=== PATIENT | male | born 1935 | race Caucasian/White ===

== ENCOUNTER 2021-08-23 11:12 | Inpatient (IN) | payer MEDICARE ==
[~2021-08-23] VITALS: Ht 180.3 cm; Wt 83.9 kg
[2021-08-23 11:38] LABS: BASOPHILS % 0.1 % (0.0-1.0); EOSINOPHILS # (AUTO) 0.1 (0.0-0.4); EOSINOPHILS % 1.4 % (0.0-6.0); HEMATOCRIT 43.3 % (38.2-49.6); HEMOGLOBIN 14.1 g/dL (14.0-18.0); LYMPHOCYTES # (AUTO) 1.5 (1.0-3.2); LYMPHOCYTES % 16.7 % (18.0-39.1); MEAN CORPUSCULAR HEMOGLOBIN 31.9 pg (28-32); MEAN CORPUSCULAR HGB CONC 32.6 g/dL (31-35); MONOCYTES # (AUTO) 0.6 (0.2-0.8); MONOCYTES % 6.7 % (4.4-11.3); NEUTROPHILS # (AUTO) 6.8 (2.1-6.9); NEUTROPHILS % 74.2 % (38.7-80.0); PLATELET COUNT 315 x10e3/uL (140-360); RED BLOOD COUNT 4.42 x10e6/uL (4.3-5.7); RED CELL DISTRIBUTION WIDTH 13.3 % (11.7-14.4)
[2021-08-23 11:52] LABS: PROTHROMBIN TIME 14.1 seconds (11.9-14.5)
[2021-08-23 11:53] LABS: PARTIAL THROMBOPLASTIN TIME 28.6 seconds (23.8-35.5)
[2021-08-23 11:59] LABS: ALBUMIN 3.3 g/dL (3.5-5.0); ALBUMIN/GLOBULIN RATIO 0.7 (0.8-2.0); ANION GAP 18.9 mmol/L (8-16); CALCIUM 9.2 mg/dL (8.4-10.2); POTASSIUM 4.9 mmol/L (3.5-5.1)
[2021-08-23 12:05] LABS: CREATINE KINASE MB 2.2 ng/mL (0-5.0)
[2021-08-23 12:22] LABS: CLARITY,URINE CLEAR (CLEAR); COLOR,URINE YELLOW (YELLOW); LEUKOCYTE ESTERASE ,URINE NEGATIVE (NEGATIVE); NITRITE,URINE NEGATIVE (NEGATIVE)
[2021-08-23 12:23] LABS: KETONES,URINE NEGATIVE (NEGATIVE); PROTEIN,URINE DIPSTICK NEGATIVE (NEGATIVE); URINE UROBILINOGEN 0.2 mg/dL (0.2 - 1)
[2021-08-23 12:33] LABS: WBC,URINE (MAN) 0-5 /HPF (0-5)
[2021-08-23 12:34] LABS: BACTERIA,URINE MODERATE /HPF; EPITHELIAL CELLS,URINE FEW /LPF; TRANSITIONAL EPI CELLS,URINE RARE
[2021-08-23] MEDS ORDERED: Morphine 2mg Syringe 2 MG/ML SYR IV PRN (13:15)
[2021-08-23] MEDS ORDERED: ONDANSETRON HCL INJ 2MG/ML 2ML 2 MG/ML VIAL IV PRN (13:15)
[2021-08-23] MEDS ORDERED: INSULIN REGULAR, HUMAN 100 UNIT/1 ML SQ ONE (13:30)
[2021-08-23 14:05] VITALS: BP 149/82
[2021-08-23 14:17] VITALS: BP 149/82
[2021-08-23 14:29] VITALS: BP 149/82
[2021-08-23] MEDS ORDERED: OXYBUTYNIN CHLOR5 MG PO (14:29)
[2021-08-23] MEDS ORDERED: BENAZEPRIL HCL40 MG PO (14:29)
[2021-08-23] MEDS ORDERED: LEVOTHYROXINE100 MCG PO (14:29)
[2021-08-23] MEDS ORDERED: ZEBETA10 MG PO (14:29)
[2021-08-23] MEDS ORDERED: FUROSEMIDE40 MG PO (14:29)
[2021-08-23] MEDS ORDERED: METFORMIN HCL1000 MG PO (14:29)
[2021-08-23] MEDS ORDERED: GLIPIZIDE10 MG PO (14:29)
[2021-08-23] MEDS ORDERED: NIFEDIPINE ER30 M1 PO (14:29)
[2021-08-23] MEDS ORDERED: FENOFIBRATE145 M1 PO (14:29)
[2021-08-23] MEDS ORDERED: METOPROLOL TARTRATE INJ 1 MG/ML VIAL IV PRN (14:30)
[2021-08-23] MEDS ORDERED: ACETAMINOPHEN 325 MG TAB PO PRN (14:30)
[2021-08-23] MEDS ORDERED: POLYETHYLENE GLYCOL 3350 17 GM PACK PO PRN (14:30)
[2021-08-23] MEDS ORDERED: SODIUM CHLORIDE 0.9% 1000ML 1,000 ML IV SCH (15:15)
[2021-08-23 16:00] VITALS: BP 140/71
[2021-08-23] MEDS ORDERED: DEXTROSE 50% SYRINGE 50 ML IV PRN (16:00)
[2021-08-23] MEDS ORDERED: FAMOTIDINE 20 MG TAB PO SCH (16:30)
[2021-08-23] MEDS ORDERED: DOCUSATE SODIUM 100 MG CAP PO SCH (17:00)
[2021-08-23] MEDS ORDERED: ASPIRIN 325 MG TAB PO ONE (17:00)
[2021-08-23] MEDS: FAMOTIDINE 20 MG TAB PO SCH (17:47)
[2021-08-23] MEDS: OXYBUTYNIN CHLORIDE 5 MG TAB PO SCH (17:47)
[2021-08-23] MEDS: DOCUSATE SODIUM 100 MG CAP PO SCH ×2 (17:47→21:48)
[2021-08-23] MEDS: INSULIN REGULAR, HUMAN 100 UNIT/1 ML SQ SCH ×2 (17:58→21:48)
[2021-08-23 19:07] LABS: CREATINE KINASE MB 1.6 ng/mL (0-5.0)
[2021-08-23 20:00] VITALS: BP 163/90
[2021-08-24] VITALS: BP 132/60
[2021-08-24 04:00] VITALS: BP 159/72
[2021-08-24] MEDS: LEVOTHYROXINE SODIUM 100 MCG TAB PO SCH (05:42)
[2021-08-24 06:03] LABS: BASOPHILS % 0.3 % (0.0-1.0); EOSINOPHILS # (AUTO) 0.2 (0.0-0.4); EOSINOPHILS % 2.3 % (0.0-6.0); HEMOGLOBIN 12.5 g/dL (14.0-18.0); LYMPHOCYTES # (AUTO) 2.2 (1.0-3.2); LYMPHOCYTES % 24.4 % (18.0-39.1); MEAN CORPUSCULAR HEMOGLOBIN 31.4 pg (28-32); MEAN CORPUSCULAR HGB CONC 32.1 g/dL (31-35); MONOCYTES # (AUTO) 0.6 (0.2-0.8); MONOCYTES % 6.5 % (4.4-11.3); NEUTROPHILS # (AUTO) 5.8 (2.1-6.9); NEUTROPHILS % 65.6 % (38.7-80.0); PLATELET COUNT 268 x10e3/uL (140-360); RED BLOOD COUNT 3.98 x10e6/uL (4.3-5.7); RED CELL DISTRIBUTION WIDTH 13.2 % (11.7-14.4)
[2021-08-24 06:31] LABS: ALBUMIN 2.7 g/dL (3.5-5.0); ALBUMIN/GLOBULIN RATIO 0.7 (0.8-2.0); ANION GAP 15.6 mmol/L (8-16); CALCIUM 8.4 mg/dL (8.4-10.2); CHOL/HDL RATIO 6.4 (3.9-4.7); CREATININE, SERUM 1.57 mg/dL (0.72-1.25); MAGNESIUM 1.9 MG/DL (1.3-2.1); PHOSPHORUS 4.6 MG/DL (2.3-4.7); POTASSIUM 4.6 mmol/L (3.5-5.1)
[2021-08-24 06:55] LABS: THYROID STIMULATING HORMONE 3.991 uIU/mL (0.350-4.940)
[2021-08-24] MEDS: INSULIN REGULAR, HUMAN 100 UNIT/1 ML SQ SCH ×4 (07:30→21:12)
[2021-08-24 08:00] VITALS: BP 159/72
[2021-08-24 08:28] VITALS: BP 176/99
[2021-08-24] MEDS ORDERED: FENOFIBRATE 145 MG TAB PO SCH (09:00)
[2021-08-24] MEDS ORDERED: FUROSEMIDE 40 MG TAB PO SCH (09:00)
[2021-08-24] MEDS ORDERED: BISOPROLOL FUMARATE 10 MG TAB PO SCH (09:00)
[2021-08-24] MEDS: FAMOTIDINE 20 MG TAB PO SCH (09:08)
[2021-08-24] MEDS: ASPIRIN 81 MG ENTERIC COATED PO SCH (09:09)
[2021-08-24] MEDS: DOCUSATE SODIUM 100 MG CAP PO SCH ×3 (09:09→21:03)
[2021-08-24] MEDS: OXYBUTYNIN CHLORIDE 5 MG TAB PO SCH ×2 (09:11→16:54)
[2021-08-24] MEDS: NIFEDIPINE CR 30 MG TAB PO SCH (09:11)
[2021-08-24 12:08] VITALS: BP 184/99
[2021-08-24] MEDS: BISOPROLOL FUMARATE 10 MG TAB PO SCH (12:15)
[2021-08-24] MEDS ORDERED: CLOPIDOGREL BISULFATE 75 MG TAB PO NR (13:30)
[2021-08-24] MEDS ORDERED: HYDRALAZINE HCL 20 MG/ML VIAL IV PRN (13:30)
[2021-08-24] MEDS: CLONIDINE HCL 0.1 MG TAB PO SCH (16:54)
[2021-08-24 17:55] LABS: PHOSPHORUS 4.4 MG/DL (2.3-4.7)
[2021-08-24 20:00] VITALS: BP 145/81
[2021-08-25] VITALS (8 sets, daily range): BP systolic 121–165; BP diastolic 62–91
[2021-08-25] MEDS: LEVOTHYROXINE SODIUM 100 MCG TAB PO SCH (05:30)
[2021-08-25 06:09] LABS: BASOPHILS % 0.3 % (0.0-1.0); EOSINOPHILS # (AUTO) 0.2 (0.0-0.4); EOSINOPHILS % 2.7 % (0.0-6.0); HEMATOCRIT 39.1 % (38.2-49.6); HEMOGLOBIN 12.6 g/dL (14.0-18.0); LYMPHOCYTES # (AUTO) 2.1 (1.0-3.2); LYMPHOCYTES % 24.5 % (18.0-39.1); MEAN CORPUSCULAR HEMOGLOBIN 31.4 pg (28-32); MEAN CORPUSCULAR HGB CONC 32.2 g/dL (31-35); MEAN CORPUSCULAR VOLUME 97.5 fL (81-99); MONOCYTES # (AUTO) 0.6 (0.2-0.8); MONOCYTES % 7.3 % (4.4-11.3); NEUTROPHILS # (AUTO) 5.6 (2.1-6.9); NEUTROPHILS % 64.2 % (38.7-80.0); PLATELET COUNT 285 x10e3/uL (140-360); RED BLOOD COUNT 4.01 x10e6/uL (4.3-5.7); RED CELL DISTRIBUTION WIDTH 13.1 % (11.7-14.4)
[2021-08-25 06:54] LABS: TOTAL PROTEIN, URINE < 6.8 mg/dL (1-14)
[2021-08-25 06:56] LABS: ALBUMIN 2.9 g/dL (3.5-5.0); ALBUMIN/GLOBULIN RATIO 0.9 (0.8-2.0); ANION GAP 13.3 mmol/L (8-16); CALCIUM 8.8 mg/dL (8.4-10.2); CREATININE, SERUM 1.72 mg/dL (0.72-1.25); POTASSIUM 4.3 mmol/L (3.5-5.1)
[2021-08-25 07:00] LABS: BACTERIA,URINE FEW /HPF; CLARITY,URINE CLEAR (CLEAR); COLOR,URINE YELLOW (YELLOW); EPITHELIAL CELLS,URINE FEW /LPF; KETONES,URINE NEGATIVE (NEGATIVE); LEUKOCYTE ESTERASE ,URINE NEGATIVE (NEGATIVE); NITRITE,URINE NEGATIVE (NEGATIVE); PROTEIN,URINE DIPSTICK NEGATIVE (NEGATIVE); RBC,URINE 0-5 /HPF (0-5); URINE UROBILINOGEN 1 mg/dL (0.2 - 1); WBC,URINE (MAN) 0-5 /HPF (0-5)
[2021-08-25 07:28] LABS: CREATININE,URINE RANDOM 70.39 mg/dL (63-166); SODIUM,URINE 56 mmol/L
[2021-08-25 07:29] LABS: POTASSIUM,URINE 38.1 mmol/L
[2021-08-25] MEDS: INSULIN REGULAR, HUMAN 100 UNIT/1 ML SQ SCH ×4 (07:30→20:35)
[2021-08-25 08:34] LABS: EOSINOPHIL SMEAR,URINE NONE SEEN (NONE SEEN)
[2021-08-25] MEDS: FAMOTIDINE 20 MG TAB PO SCH (09:00)
[2021-08-25] MEDS: DOCUSATE SODIUM 100 MG CAP PO SCH ×3 (09:00→20:32)
[2021-08-25] MEDS: ASPIRIN 81 MG ENTERIC COATED PO SCH (09:00)
[2021-08-25] MEDS: NIFEDIPINE CR 30 MG TAB PO SCH (09:01)
[2021-08-25] MEDS: BISOPROLOL FUMARATE 10 MG TAB PO SCH (09:01)
[2021-08-25] MEDS: OXYBUTYNIN CHLORIDE 5 MG TAB PO SCH ×2 (09:01→16:32)
[2021-08-25] MEDS: CLONIDINE HCL 0.1 MG TAB PO SCH ×2 (09:02→16:32)
[2021-08-25] MEDS ORDERED: SODIUM CHLORIDE 0.9% 1000ML 1,000 ML IV SCH (12:45)
[2021-08-25 17:22] LABS: BASOPHILS % 0.2 % (0.0-1.0); EOSINOPHILS # (AUTO) 0.2 (0.0-0.4); EOSINOPHILS % 1.6 % (0.0-6.0); HEMATOCRIT 35.2 % (38.2-49.6); HEMOGLOBIN 11.6 g/dL (14.0-18.0); LYMPHOCYTES # (AUTO) 0.7 (1.0-3.2); LYMPHOCYTES % 5.7 % (18.0-39.1); MEAN CORPUSCULAR HEMOGLOBIN 30.8 pg (28-32); MEAN CORPUSCULAR VOLUME 93.4 fL (81-99); MONOCYTES % 7.6 % (4.4-11.3); NEUTROPHILS # (AUTO) 10.8 (2.1-6.9); NEUTROPHILS % 83.3 % (38.7-80.0); PLATELET COUNT 272 x10e3/uL (140-360); RED BLOOD COUNT 3.77 x10e6/uL (4.3-5.7); RED CELL DISTRIBUTION WIDTH 13.1 % (11.7-14.4)
[2021-08-25 17:42] LABS: ANION GAP 15.3 mmol/L (8-16); CALCIUM 8.9 mg/dL (8.4-10.2); CREATININE, SERUM 1.79 mg/dL (0.72-1.25); POTASSIUM 4.3 mmol/L (3.5-5.1)
[2021-08-26] VITALS (17 sets, daily range): BP systolic 123–186; BP diastolic 64–95
[2021-08-26] MEDS: SODIUM CHLORIDE 0.9% 1000ML 1,000 ML IV SCH ×2 (00:05→17:59)
[2021-08-26] MEDS: LEVOTHYROXINE SODIUM 100 MCG TAB PO SCH (05:34)
[2021-08-26 06:08] LABS: BASOPHILS # (AUTO) 0.1 (0.0-0.1); BASOPHILS % 0.5 % (0.0-1.0); EOSINOPHILS # (AUTO) 0.2 (0.0-0.4); EOSINOPHILS % 2.1 % (0.0-6.0); HEMATOCRIT 38.2 % (38.2-49.6); HEMOGLOBIN 12.5 g/dL (14.0-18.0); LYMPHOCYTES # (AUTO) 2.5 (1.0-3.2); LYMPHOCYTES % 24.3 % (18.0-39.1); MEAN CORPUSCULAR HEMOGLOBIN 31.7 pg (28-32); MEAN CORPUSCULAR HGB CONC 32.7 g/dL (31-35); MONOCYTES # (AUTO) 0.8 (0.2-0.8); MONOCYTES % 7.2 % (4.4-11.3); NEUTROPHILS # (AUTO) 6.8 (2.1-6.9); NEUTROPHILS % 65.3 % (38.7-80.0); PLATELET COUNT 281 x10e3/uL (140-360); RED BLOOD COUNT 3.94 x10e6/uL (4.3-5.7); RED CELL DISTRIBUTION WIDTH 13.1 % (11.7-14.4)
[2021-08-26 06:37] LABS: ALBUMIN/GLOBULIN RATIO 0.9 (0.8-2.0); ANION GAP 12.4 mmol/L (8-16); CALCIUM 8.7 mg/dL (8.4-10.2); CREATININE, SERUM 1.69 mg/dL (0.72-1.25); POTASSIUM 4.4 mmol/L (3.5-5.1)
[2021-08-26] MEDS: INSULIN REGULAR, HUMAN 100 UNIT/1 ML SQ SCH ×4 (07:30→20:04)
[2021-08-26] MEDS ORDERED: FENTANYL CITRATE/PF 100MCG/2 ML INJ ONE (09:25)
[2021-08-26] MEDS ORDERED: MIDAZOLAM HCL 2 MG/2 ML VIAL ONE (09:25)
[2021-08-26] MEDS ORDERED: IOPAMIDOL 370 MG/ML 100 ML INFUS..BTL INJ ONE ×2 (09:47→09:57)
[2021-08-26] MEDS ORDERED: HYDRALAZINE HCL 20 MG/ML VIAL ONE (09:55)
[2021-08-26] MEDS ORDERED: HEPARIN SOD (PORCINE) 1000 UNIT/ML 30ML ONE (09:57)
[2021-08-26] MEDS ORDERED: SODIUM CHLORIDE 0.9% 1000ML 1,000 ML ONE (09:57)
[2021-08-26] MEDS ORDERED: LIDOCAINE HCL 2% LOCAL 20 ML VIAL ONE (09:57)
[2021-08-26] MEDS ORDERED: NITROGLYCERIN/D5W 200 MCG/ML 250 ML ONE (09:57)
[2021-08-26] MEDS ORDERED: HEPARIN SOD/SOD CHLORIDE 2,000 ML ONE (09:57)
[2021-08-26] MEDS: CLOPIDOGREL BISULFATE 75 MG TAB PO SCH (10:45)
[2021-08-26] MEDS: FAMOTIDINE 20 MG TAB PO SCH (12:30)
[2021-08-26] MEDS: OXYBUTYNIN CHLORIDE 5 MG TAB PO SCH ×2 (12:30→17:18)
[2021-08-26] MEDS: DOCUSATE SODIUM 100 MG CAP PO SCH ×3 (12:30→20:04)
[2021-08-26] MEDS: CLONIDINE HCL 0.1 MG TAB PO SCH ×2 (12:30→17:18)
[2021-08-26] MEDS: ASPIRIN 81 MG ENTERIC COATED PO SCH (12:30)
[2021-08-26] MEDS: NIFEDIPINE CR 30 MG TAB PO SCH (12:31)
[2021-08-26] MEDS: BISOPROLOL FUMARATE 10 MG TAB PO SCH (12:31)
[2021-08-26 14:29] LABS: BASOPHILS % 0.3 % (0.0-1.0); EOSINOPHILS # (AUTO) 0.1 (0.0-0.4); EOSINOPHILS % 0.8 % (0.0-6.0); HEMATOCRIT 43.4 % (38.2-49.6); HEMOGLOBIN 14.2 g/dL (14.0-18.0); LYMPHOCYTES % 17.4 % (18.0-39.1); MEAN CORPUSCULAR HEMOGLOBIN 32.4 pg (28-32); MEAN CORPUSCULAR HGB CONC 32.7 g/dL (31-35); MEAN CORPUSCULAR VOLUME 99.1 fL (81-99); MONOCYTES # (AUTO) 0.8 (0.2-0.8); MONOCYTES % 7.2 % (4.4-11.3); NEUTROPHILS # (AUTO) 8.6 (2.1-6.9); NEUTROPHILS % 73.9 % (38.7-80.0); PLATELET COUNT 322 x10e3/uL (140-360); RED BLOOD COUNT 4.38 x10e6/uL (4.3-5.7); RED CELL DISTRIBUTION WIDTH 13.4 % (11.7-14.4)
[2021-08-26 14:46] LABS: ANION GAP 18.1 mmol/L (8-16); CALCIUM 8.6 mg/dL (8.4-10.2); CREATININE, SERUM 1.49 mg/dL (0.72-1.25); POTASSIUM 4.1 mmol/L (3.5-5.1)
[2021-08-27 00:12] VITALS: BP 128/74
[2021-08-27] MEDS: SODIUM CHLORIDE 0.9% 1000ML 1,000 ML IV SCH (00:59)
[2021-08-27] MEDS: LEVOTHYROXINE SODIUM 100 MCG TAB PO SCH (05:12)
[2021-08-27 05:44] LABS: BASOPHILS # (AUTO) 0.1 (0.0-0.1); BASOPHILS % 0.6 % (0.0-1.0); EOSINOPHILS # (AUTO) 0.2 (0.0-0.4); EOSINOPHILS % 1.8 % (0.0-6.0); HEMATOCRIT 40.2 % (38.2-49.6); LYMPHOCYTES # (AUTO) 1.7 (1.0-3.2); LYMPHOCYTES % 16.3 % (18.0-39.1); MEAN CORPUSCULAR HEMOGLOBIN 31.9 pg (28-32); MEAN CORPUSCULAR HGB CONC 32.3 g/dL (31-35); MEAN CORPUSCULAR VOLUME 98.5 fL (81-99); MONOCYTES # (AUTO) 0.7 (0.2-0.8); MONOCYTES % 7.1 % (4.4-11.3); NEUTROPHILS # (AUTO) 7.6 (2.1-6.9); NEUTROPHILS % 73.6 % (38.7-80.0); PLATELET COUNT 287 x10e3/uL (140-360); RED BLOOD COUNT 4.08 x10e6/uL (4.3-5.7); RED CELL DISTRIBUTION WIDTH 13.4 % (11.7-14.4)
[2021-08-27 05:56] VITALS: BP 150/90
[2021-08-27 06:02] LABS: ANION GAP 13.2 mmol/L (8-16); CALCIUM 7.9 mg/dL (8.4-10.2); CREATININE, SERUM 1.36 mg/dL (0.72-1.25); POTASSIUM 4.2 mmol/L (3.5-5.1)
[2021-08-27 06:21] LABS: PHOSPHORUS 3.8 MG/DL (2.3-4.7)
[2021-08-27 08:11] VITALS: BP 174/87
[2021-08-27 08:18] VITALS: BP 174/87
[2021-08-27] MEDS: FAMOTIDINE 20 MG TAB PO SCH (08:40)
[2021-08-27] MEDS: CLONIDINE HCL 0.1 MG TAB PO SCH (08:41)
[2021-08-27] MEDS: INSULIN REGULAR, HUMAN 100 UNIT/1 ML SQ SCH ×2 (08:41→12:12)
[2021-08-27] MEDS: ASPIRIN 81 MG ENTERIC COATED PO SCH (08:41)
[2021-08-27] MEDS: OXYBUTYNIN CHLORIDE 5 MG TAB PO SCH (08:42)
[2021-08-27] MEDS: NIFEDIPINE CR 30 MG TAB PO SCH (08:42)
[2021-08-27] MEDS: DOCUSATE SODIUM 100 MG CAP PO SCH (08:42)
[2021-08-27] MEDS: BISOPROLOL FUMARATE 10 MG TAB PO SCH (08:42)
[2021-08-27] MEDS: CLOPIDOGREL BISULFATE 75 MG TAB PO SCH (08:42)
[2021-08-27] MEDS ORDERED: COLACE100 MG PO (09:08)
[2021-08-27] MEDS ORDERED: CLONIDINE HCL0.1 MG PO (09:08)
[2021-08-27] MEDS ORDERED: MIRALAX17 GM PO (09:08)
[2021-08-27] MEDS ORDERED: ASPIRIN EC81 MG PO (09:08)
[2021-08-27] MEDS ORDERED: PLAVIX75 MG PO (09:08)
[2021-08-27] MEDS ORDERED: FAMOTIDINE20 MG PO (09:08)
[2021-08-27] MEDS ORDERED: ACETAMINOPHEN325 M1 PO (09:08)
[2021-08-27] MEDS ORDERED: ATORVASTATIN CA40 MG PO (10:16)
[2021-08-27] MEDS ORDERED: ONDANSETRON HCL 4 MG ORAL DISINTEGRATING TAB PO PRN (12:15)
[2021-08-27 12:17] VITALS: BP 135/91
[2021-08-27] MEDS ORDERED: JANUVIA100 MG PO (14:00)
[2021-08-27] MEDS ORDERED: ATORVASTATIN 40 MG TAB PO SCH (21:00)
[2021-08-28 16:12] LABS: ALPHA 2 GLOBULIN URINE PEP 13.5 % (.)
== END 2021-08-27 14:14 | disposition home or self-care (01) | DRG 286 ==
LOC: ER 11:16 → ERHOLD 13:01 → MED/SURG3 13:50 → ER 13:58
PROVIDERS: ADMIT Internal Medicine; ATTEND Internal Medicine
PROC: 4A023N7 Measurement of Cardiac Sampling and Pressure, Left Heart, Percutaneous Approach (ICD-10-PCS; principal; 2021-08-26)
PROC: B2111ZZ Fluoroscopy of Multiple Coronary Arteries using Low Osmolar Contrast (ICD-10-PCS; 2021-08-26)
PROC: B2151ZZ Fluoroscopy of Left Heart using Low Osmolar Contrast (ICD-10-PCS; 2021-08-26)
DX: I13.0 Hypertensive heart and chronic kidney disease with heart failure and stage 1 through stage 4 chronic kidney disease, or unspecified chronic kidney disease (principal); I50.33 Acute on chronic diastolic (congestive) heart failure; N17.9 Acute kidney failure, unspecified; E87.2 Acidosis; N18.4 Chronic kidney disease, stage 4 (severe); N13.8 Other obstructive and reflux uropathy; I25.110 Atherosclerotic heart disease of native coronary artery with unstable angina pectoris; E78.5 Hyperlipidemia, unspecified; N40.1 Benign prostatic hyperplasia with lower urinary tract symptoms; R33.8 Other retention of urine; Z74.09 Other reduced mobility; Z85.828 Personal history of other malignant neoplasm of skin; E11.9 Type 2 diabetes mellitus without complications; Z79.899 Other long term (current) drug therapy; Z20.822 Contact with and (suspected) exposure to COVID-19; E03.9 Hypothyroidism, unspecified; E11.65 Type 2 diabetes mellitus with hyperglycemia; I25.2 Old myocardial infarction; I25.10 Atherosclerotic heart disease of native coronary artery without angina pectoris; I35.8 Other nonrheumatic aortic valve disorders; E11.22 Type 2 diabetes mellitus with diabetic chronic kidney disease; I65.29 Occlusion and stenosis of unspecified carotid artery; R41.3 Other amnesia; E11.51 Type 2 diabetes mellitus with diabetic peripheral angiopathy without gangrene; E11.69 Type 2 diabetes mellitus with other specified complication; Z91.81 History of falling; Z87.891 Personal history of nicotine dependence
CPT/HCPCS: 36415; 71045; 76770; 80048; 80053; 80061; 81001; 81015; 82550; 82553; 82570; 82948; 83036; 83735; 83880; 83970; 84100; 84133; 84156; 84165; 84166; 84300; 84443; 84484; 84550; 85025; 85610; 85730; 86021; 86039; 86160; 86431; 87340; 92523; 93005; 93306; 93458; 93880; 94799; 99152; 99153; 99284; C1766; C1887; J0360; J1644; J1817; J2001; J2250; J3010; J7030; Q9967; U0002

== ENCOUNTER 2022-04-22 21:55 | Inpatient (IN) | payer MEDICARE ==
[~2022-04-22] VITALS: Ht 180.3 cm; Wt 83.9 kg
[~2022-04-22 21:55] MED LIST: ACETAMINOPHEN325 M1 PO; ASPIRIN EC81 MG PO; ATORVASTATIN CA40 MG PO; BENAZEPRIL HCL40 MG PO; CLONIDINE HCL0.1 MG PO; COLACE100 MG PO; FAMOTIDINE20 MG PO; FENOFIBRATE145 M1 PO; FUROSEMIDE40 MG PO; GLIPIZIDE10 MG PO; JANUVIA100 MG PO; LEVOTHYROXINE100 MCG PO; METFORMIN HCL1000 MG PO; MIRALAX17 GM PO; NIFEDIPINE ER30 M1 PO; OXYBUTYNIN CHLOR5 MG PO; PLAVIX75 MG PO; ZEBETA10 MG PO
[2022-04-22] MEDS ORDERED: ACETAMINOPHEN 325 MG TAB PO STA (21:57)
[2022-04-22] MEDS ORDERED: SODIUM CHLORIDE 0.9% 1000ML 1,000 ML IV STA (21:57)
[2022-04-22 22:34] LABS: BASOPHILS % 0.2 % (0.0-1.0); EOSINOPHILS % 0.1 % (0.0-6.0); HEMATOCRIT 41.5 % (38.2-49.6); HEMOGLOBIN 13.1 g/dL (14.0-18.0); LYMPHOCYTES # (AUTO) 0.4 (1.0-3.2); LYMPHOCYTES % 2.1 % (18.0-39.1); MEAN CORPUSCULAR HEMOGLOBIN 31.1 pg (28-32); MEAN CORPUSCULAR HGB CONC 31.6 g/dL (31-35); MEAN CORPUSCULAR VOLUME 98.6 fL (81-99); MONOCYTES # (AUTO) 0.2 (0.2-0.8); MONOCYTES % 1.1 % (4.4-11.3); NEUTROPHILS # (AUTO) 18.7 (2.1-6.9); NEUTROPHILS % 96.1 % (38.7-80.0); PLATELET COUNT 444 x10e3/uL (140-360); RED BLOOD COUNT 4.21 x10e6/uL (4.3-5.7); RED CELL DISTRIBUTION WIDTH 12.7 % (11.7-14.4)
[2022-04-22 22:38] LABS: CLARITY,URINE TURBID (CLEAR); COLOR,URINE YELLOW (YELLOW); KETONES,URINE NEGATIVE (NEGATIVE); LEUKOCYTE ESTERASE ,URINE LARGE (NEGATIVE); NITRITE,URINE POSITIVE (NEGATIVE); PROTEIN,URINE DIPSTICK 2+ (NEGATIVE); URINE UROBILINOGEN 0.2 mg/dL (0.2 - 1)
[2022-04-22 22:44] LABS: BACTERIA,URINE MANY /HPF; EPITHELIAL CELLS,URINE FEW /LPF; RBC,URINE 21-50 /HPF (0-5); WBC,URINE (MAN) >50 /HPF (0-5)
[2022-04-22 22:52] LABS: ALBUMIN 2.6 g/dL (3.5-5.0); ALBUMIN/GLOBULIN RATIO 0.5 (0.8-2.0); ANION GAP 21.1 mmol/L (8-16); CREATININE, SERUM 1.92 mg/dL (0.72-1.25); POTASSIUM 4.1 mmol/L (3.5-5.1)
[2022-04-22 22:59] LABS: CREATINE KINASE MB 1.1 ng/mL (0-5.0)
[2022-04-22] MEDS ORDERED: IOPAMIDOL 370 MG/ML 100 ML INFUS..BTL INJ ONE (23:18)
[2022-04-23] VITALS (7 sets, daily range): BP systolic 123–167; BP diastolic 56–82
[2022-04-23] MEDS: ENOXAPARIN INJ 80 MG/0.8 ML SYR SC SCH ×2 (02:20→08:52)
[2022-04-23] MEDS ORDERED: NATEGLINIDE60 MG PO (02:40)
[2022-04-23] MEDS ORDERED: GLIPIZIDE10 MG PO (02:40)
[2022-04-23] MEDS ORDERED: FUROSEMIDE40 MG PO ×2 (02:40→08:58)
[2022-04-23] MEDS ORDERED: SODIUM CHLORIDE 0.9% 250ML 250 ML ONE ×2 (06:56→11:49)
[2022-04-23 07:31] LABS: CREATINE KINASE MB 1.4 ng/mL (0-5.0)
[2022-04-23] MEDS ORDERED: POLYETHYLENE GLYCOL 3350 17 GM PACK PO PRN (09:45)
[2022-04-23 15:02] LABS: CREATINE KINASE MB 1.3 ng/mL (0-5.0)
[2022-04-23] MEDS ORDERED: REMDESIVIR 100MG 200 MG in SODIUM CHLORIDE 0.9% 100 ML IV ONE ×2 (16:00→17:00)
[2022-04-23] MEDS: APIXAB 2.5 MG TABLET PO SCH (17:42)
[2022-04-23] MEDS: DEXAMETHASONE 4 MG TAB PO SCH (17:42)
[2022-04-23] MEDS: OXYBUTYNIN CHLORIDE 5 MG TAB PO SCH (17:42)
[2022-04-23] MEDS: DOCUSATE SODIUM 100 MG CAP PO SCH (17:42)
[2022-04-24] VITALS (7 sets, daily range): BP systolic 169–188; BP diastolic 71–87
[2022-04-24 05:55] LABS: BASOPHILS % 0.3 % (0.0-1.0); HEMATOCRIT 37.1 % (38.2-49.6); HEMOGLOBIN 12.3 g/dL (14.0-18.0); LYMPHOCYTES # (AUTO) 1.1 (1.0-3.2); LYMPHOCYTES % 9.9 % (18.0-39.1); MEAN CORPUSCULAR HEMOGLOBIN 31.1 pg (28-32); MEAN CORPUSCULAR HGB CONC 33.2 g/dL (31-35); MEAN CORPUSCULAR VOLUME 93.7 fL (81-99); MONOCYTES # (AUTO) 0.5 (0.2-0.8); NEUTROPHILS # (AUTO) 9.1 (2.1-6.9); NEUTROPHILS % 84.1 % (38.7-80.0); PLATELET COUNT 396 x10e3/uL (140-360); RED BLOOD COUNT 3.96 x10e6/uL (4.3-5.7); RED CELL DISTRIBUTION WIDTH 12.9 % (11.7-14.4)
[2022-04-24] MEDS: LEVOTHYROXINE SODIUM 100 MCG TAB PO SCH (06:08)
[2022-04-24 06:11] LABS: ALBUMIN 2.1 g/dL (3.5-5.0); ALBUMIN/GLOBULIN RATIO 0.4 (0.8-2.0); ANION GAP 18.7 mmol/L (8-16); CALCIUM 8.3 mg/dL (8.4-10.2); CREATININE, SERUM 1.54 mg/dL (0.72-1.25); POTASSIUM 3.7 mmol/L (3.5-5.1)
[2022-04-24] MEDS: APIXAB 2.5 MG TABLET PO SCH ×2 (08:51→17:43)
[2022-04-24] MEDS: DOCUSATE SODIUM 100 MG CAP PO SCH ×2 (08:52→17:42)
[2022-04-24] MEDS: OXYBUTYNIN CHLORIDE 5 MG TAB PO SCH ×2 (08:52→17:43)
[2022-04-24] MEDS: CEFTRIAXONE 2 GM in SODIUM CHLORIDE 0.9% 100 ML IV SCH (08:52)
[2022-04-24] MEDS: REMDESIVIR 100MG 100 MG in SODIUM CHLORIDE 0.9% 100 ML IV SCH (14:03)
[2022-04-24] MEDS: DEXAMETHASONE 4 MG TAB PO SCH (17:43)
[2022-04-24] MEDS: ACETAMINOPHEN 325 MG TAB PO PRN (21:22)
[2022-04-25] VITALS (7 sets, daily range): BP systolic 110–175; BP diastolic 61–96
[2022-04-25] MEDS: LEVOTHYROXINE SODIUM 100 MCG TAB PO SCH (06:08)
[2022-04-25] MEDS: APIXAB 2.5 MG TABLET PO SCH ×2 (08:28→16:16)
[2022-04-25] MEDS: OXYBUTYNIN CHLORIDE 5 MG TAB PO SCH ×2 (08:29→16:16)
[2022-04-25] MEDS: CEFTRIAXONE 2 GM in SODIUM CHLORIDE 0.9% 100 ML IV SCH (08:29)
[2022-04-25] MEDS: DOCUSATE SODIUM 100 MG CAP PO SCH ×2 (08:29→16:16)
[2022-04-25] MEDS: ACETAMINOPHEN 325 MG TAB PO PRN (11:17)
[2022-04-25] MEDS ORDERED: DEXTROSE 50% SYRINGE 50 ML IV PRN (12:00)
[2022-04-25] MEDS: INSULIN LISPRO 100 UNIT/1 ML 3ML VIAL SQ SCH ×3 (12:15→21:46)
[2022-04-25] MEDS: REMDESIVIR 100MG 100 MG in SODIUM CHLORIDE 0.9% 100 ML IV SCH (14:01)
[2022-04-25] MEDS ORDERED: NON-FORMULARY MEDICATION (Nateglinide 60 MG) PO SCH (15:00)
[2022-04-25] MEDS: DEXAMETHASONE 4 MG TAB PO SCH (16:15)
[2022-04-25] MEDS: FUROSEMIDE 40 MG TAB PO SCH (16:16)
[2022-04-25] MEDS: BISOPROLOL FUMARATE 10 MG TAB PO SCH (16:16)
[2022-04-25] MEDS: CLONIDINE HCL 0.1 MG TAB PO SCH (16:16)
[2022-04-25] MEDS ORDERED: NON-FORMULARY MEDICATION (Atorvastatin Calcium 40 MG) PO SCH (21:00)
[2022-04-25] MEDS: ATORVASTATIN 40 MG TAB PO SCH (21:42)
[2022-04-26] VITALS (8 sets, daily range): BP systolic 125–166; BP diastolic 61–83
[2022-04-26 05:06] LABS: BASOPHILS % 0.2 % (0.0-1.0); EOSINOPHILS % 0.2 % (0.0-6.0); HEMATOCRIT 40.5 % (38.2-49.6); HEMOGLOBIN 12.9 g/dL (14.0-18.0); LYMPHOCYTES # (AUTO) 1.6 (1.0-3.2); LYMPHOCYTES % 12.6 % (18.0-39.1); MEAN CORPUSCULAR HEMOGLOBIN 31.2 pg (28-32); MEAN CORPUSCULAR HGB CONC 31.9 g/dL (31-35); MEAN CORPUSCULAR VOLUME 98.1 fL (81-99); MONOCYTES # (AUTO) 0.7 (0.2-0.8); MONOCYTES % 5.3 % (4.4-11.3); NEUTROPHILS # (AUTO) 10.3 (2.1-6.9); NEUTROPHILS % 81.4 % (38.7-80.0); PLATELET COUNT 384 x10e3/uL (140-360); RED BLOOD COUNT 4.13 x10e6/uL (4.3-5.7); RED CELL DISTRIBUTION WIDTH 12.3 % (11.7-14.4)
[2022-04-26 05:27] LABS: ALBUMIN/GLOBULIN RATIO 0.4 (0.8-2.0); ANION GAP 15.6 mmol/L (8-16); CALCIUM 8.2 mg/dL (8.4-10.2); CREATININE, SERUM 1.65 mg/dL (0.72-1.25); POTASSIUM 3.6 mmol/L (3.5-5.1)
[2022-04-26] MEDS: LEVOTHYROXINE SODIUM 100 MCG TAB PO SCH (06:29)
[2022-04-26] MEDS: INSULIN LISPRO 100 UNIT/1 ML 3ML VIAL SQ SCH ×4 (07:30→21:28)
[2022-04-26] MEDS: CEFTRIAXONE 2 GM in SODIUM CHLORIDE 0.9% 100 ML IV SCH (08:50)
[2022-04-26] MEDS: APIXAB 2.5 MG TABLET PO SCH ×2 (08:51→17:00)
[2022-04-26] MEDS: DOCUSATE SODIUM 100 MG CAP PO SCH ×2 (08:51→17:00)
[2022-04-26] MEDS: BISOPROLOL FUMARATE 10 MG TAB PO SCH ×2 (08:51→17:00)
[2022-04-26] MEDS: ASPIRIN 81 MG ENTERIC COATED PO SCH (08:51)
[2022-04-26] MEDS: CLONIDINE HCL 0.1 MG TAB PO SCH ×2 (08:52→17:00)
[2022-04-26] MEDS: OXYBUTYNIN CHLORIDE 5 MG TAB PO SCH ×2 (08:52→17:00)
[2022-04-26] MEDS: NIFEDIPINE CR 30 MG TAB PO SCH (08:52)
[2022-04-26] MEDS: FUROSEMIDE 40 MG TAB PO SCH (08:53)
[2022-04-26] MEDS: FAMOTIDINE 20 MG TAB PO SCH (08:53)
[2022-04-26] MEDS: REMDESIVIR 100MG 100 MG in SODIUM CHLORIDE 0.9% 100 ML IV SCH (14:00)
[2022-04-26] MEDS: FUROSEMIDE INJ 10 MG/ML 4 ML VIAL IV SCH ×2 (14:00→21:19)
[2022-04-26] MEDS: DEXAMETHASONE 4 MG TAB PO SCH (17:00)
[2022-04-26] MEDS: ATORVASTATIN 40 MG TAB PO SCH (21:18)
[2022-04-27 00:33] VITALS: BP 126/71
[2022-04-27 04:44] VITALS: BP 139/65
[2022-04-27] MEDS: FUROSEMIDE INJ 10 MG/ML 4 ML VIAL IV SCH ×3 (05:54→21:18)
[2022-04-27] MEDS: LEVOTHYROXINE SODIUM 100 MCG TAB PO SCH (05:54)
[2022-04-27 06:09] LABS: BASOPHILS % 0.2 % (0.0-1.0); EOSINOPHILS % 0.1 % (0.0-6.0); HEMATOCRIT 39.5 % (38.2-49.6); HEMOGLOBIN 13.5 g/dL (14.0-18.0); LYMPHOCYTES # (AUTO) 1.2 (1.0-3.2); LYMPHOCYTES % 10.4 % (18.0-39.1); MEAN CORPUSCULAR HGB CONC 34.2 g/dL (31-35); MEAN CORPUSCULAR VOLUME 90.8 fL (81-99); MONOCYTES # (AUTO) 0.5 (0.2-0.8); MONOCYTES % 4.3 % (4.4-11.3); NEUTROPHILS # (AUTO) 9.3 (2.1-6.9); NEUTROPHILS % 84.3 % (38.7-80.0); PLATELET COUNT 391 x10e3/uL (140-360); RED BLOOD COUNT 4.35 x10e6/uL (4.3-5.7); RED CELL DISTRIBUTION WIDTH 12.6 % (11.7-14.4)
[2022-04-27 06:36] LABS: ALBUMIN 2.1 g/dL (3.5-5.0); ALBUMIN/GLOBULIN RATIO 0.4 (0.8-2.0); ANION GAP 18.7 mmol/L (8-16); CALCIUM 8.4 mg/dL (8.4-10.2); CREATININE, SERUM 1.7 mg/dL (0.72-1.25); POTASSIUM 3.7 mmol/L (3.5-5.1)
[2022-04-27] MEDS: INSULIN LISPRO 100 UNIT/1 ML 3ML VIAL SQ SCH ×4 (07:30→21:25)
[2022-04-27] MEDS: CEFTRIAXONE 2 GM in SODIUM CHLORIDE 0.9% 100 ML IV SCH (08:48)
[2022-04-27] MEDS: CLONIDINE HCL 0.1 MG TAB PO SCH ×2 (08:49→17:00)
[2022-04-27] MEDS: ASPIRIN 81 MG ENTERIC COATED PO SCH (08:49)
[2022-04-27] MEDS: FAMOTIDINE 20 MG TAB PO SCH (08:50)
[2022-04-27] MEDS: OXYBUTYNIN CHLORIDE 5 MG TAB PO SCH ×2 (08:51→17:00)
[2022-04-27] MEDS: APIXAB 2.5 MG TABLET PO SCH ×2 (08:51→17:00)
[2022-04-27] MEDS: NIFEDIPINE CR 30 MG TAB PO SCH (08:51)
[2022-04-27] MEDS: DOCUSATE SODIUM 100 MG CAP PO SCH ×2 (08:51→17:00)
[2022-04-27] MEDS: BISOPROLOL FUMARATE 10 MG TAB PO SCH ×2 (08:53→17:00)
[2022-04-27 12:34] VITALS: BP 129/77
[2022-04-27] MEDS: INSULIN GLARGINE 100 UNITS/ML VIAL SQ SCH ×2 (13:45→17:00)
[2022-04-27] MEDS: LEVOFLOXACIN 250MG/D5W 50ML 50 ML IV SCH (14:00)
[2022-04-27] MEDS: REMDESIVIR 100MG 100 MG in SODIUM CHLORIDE 0.9% 100 ML IV SCH (14:00)
[2022-04-27 16:00] VITALS: BP 125/65
[2022-04-27 20:36] VITALS: BP 121/71
[2022-04-27 21:00] VITALS: BP 121/71
[2022-04-27] MEDS: ATORVASTATIN 40 MG TAB PO SCH (21:18)
[2022-04-28] VITALS (8 sets, daily range): BP systolic 107–130; BP diastolic 61–74
[2022-04-28 05:50] LABS: BASOPHILS % 0.3 % (0.0-1.0); EOSINOPHILS # (AUTO) 0.1 (0.0-0.4); EOSINOPHILS % 0.9 % (0.0-6.0); HEMATOCRIT 40.1 % (38.2-49.6); HEMOGLOBIN 13.8 g/dL (14.0-18.0); LYMPHOCYTES # (AUTO) 2.1 (1.0-3.2); LYMPHOCYTES % 15.5 % (18.0-39.1); MEAN CORPUSCULAR HEMOGLOBIN 31.3 pg (28-32); MEAN CORPUSCULAR HGB CONC 34.4 g/dL (31-35); MEAN CORPUSCULAR VOLUME 90.9 fL (81-99); MONOCYTES # (AUTO) 0.9 (0.2-0.8); MONOCYTES % 6.6 % (4.4-11.3); NEUTROPHILS # (AUTO) 10.1 (2.1-6.9); NEUTROPHILS % 75.9 % (38.7-80.0); PLATELET COUNT 392 x10e3/uL (140-360); RED BLOOD COUNT 4.41 x10e6/uL (4.3-5.7); RED CELL DISTRIBUTION WIDTH 12.6 % (11.7-14.4)
[2022-04-28 05:59] LABS: ALBUMIN 2.1 g/dL (3.5-5.0); ALBUMIN/GLOBULIN RATIO 0.4 (0.8-2.0); ANION GAP 19.1 mmol/L (8-16); CALCIUM 8.4 mg/dL (8.4-10.2); CREATININE, SERUM 1.7 mg/dL (0.72-1.25); POTASSIUM 3.1 mmol/L (3.5-5.1)
[2022-04-28] MEDS: LEVOTHYROXINE SODIUM 100 MCG TAB PO SCH (06:09)
[2022-04-28] MEDS: FUROSEMIDE INJ 10 MG/ML 4 ML VIAL IV SCH ×3 (06:09→21:02)
[2022-04-28] MEDS: INSULIN LISPRO 100 UNIT/1 ML 3ML VIAL SQ SCH ×4 (07:51→20:53)
[2022-04-28] MEDS: FAMOTIDINE 20 MG TAB PO SCH (07:59)
[2022-04-28] MEDS: OXYBUTYNIN CHLORIDE 5 MG TAB PO SCH ×2 (09:08→17:13)
[2022-04-28] MEDS: DOCUSATE SODIUM 100 MG CAP PO SCH ×2 (09:08→17:12)
[2022-04-28] MEDS: APIXAB 2.5 MG TABLET PO SCH ×2 (09:08→17:12)
[2022-04-28] MEDS: CEFTRIAXONE 2 GM in SODIUM CHLORIDE 0.9% 100 ML IV SCH (09:08)
[2022-04-28] MEDS: ASPIRIN 81 MG ENTERIC COATED PO SCH (09:09)
[2022-04-28] MEDS: NIFEDIPINE CR 30 MG TAB PO SCH (09:09)
[2022-04-28] MEDS: CLONIDINE HCL 0.1 MG TAB PO SCH ×2 (09:09→17:13)
[2022-04-28] MEDS: BISOPROLOL FUMARATE 10 MG TAB PO SCH ×2 (09:10→17:12)
[2022-04-28] MEDS: INSULIN GLARGINE 100 UNITS/ML VIAL SQ SCH ×2 (09:11→17:15)
[2022-04-28] MEDS ORDERED: POTASSIUM CHLORIDE 10MEQ EA PO ONE ×2 (11:45→13:45)
[2022-04-28] MEDS: CEFEPIME 2 GM in SODIUM CHLORIDE 0.9% 100 ML IV SCH (12:05)
[2022-04-28] MEDS: LEVOFLOXACIN 250MG/D5W 50ML 50 ML IV SCH (13:14)
[2022-04-28] MEDS: ATORVASTATIN 40 MG TAB PO SCH (21:01)
[2022-04-29] VITALS (8 sets, daily range): BP systolic 112–138; BP diastolic 65–74
[2022-04-29 05:34] LABS: BASOPHILS # (AUTO) 0.1 (0.0-0.1); BASOPHILS % 0.4 % (0.0-1.0); EOSINOPHILS # (AUTO) 0.3 (0.0-0.4); EOSINOPHILS % 2.3 % (0.0-6.0); HEMATOCRIT 44.1 % (38.2-49.6); HEMOGLOBIN 14.1 g/dL (14.0-18.0); LYMPHOCYTES # (AUTO) 2.1 (1.0-3.2); LYMPHOCYTES % 17.3 % (18.0-39.1); MEAN CORPUSCULAR HEMOGLOBIN 31.1 pg (28-32); MEAN CORPUSCULAR VOLUME 97.4 fL (81-99); MONOCYTES # (AUTO) 0.9 (0.2-0.8); MONOCYTES % 7.2 % (4.4-11.3); NEUTROPHILS # (AUTO) 8.7 (2.1-6.9); NEUTROPHILS % 72.1 % (38.7-80.0); PLATELET COUNT 394 x10e3/uL (140-360); RED BLOOD COUNT 4.53 x10e6/uL (4.3-5.7); RED CELL DISTRIBUTION WIDTH 12.7 % (11.7-14.4)
[2022-04-29] MEDS: LEVOTHYROXINE SODIUM 100 MCG TAB PO SCH (05:43)
[2022-04-29] MEDS: FUROSEMIDE INJ 10 MG/ML 4 ML VIAL IV SCH ×2 (05:44→10:37)
[2022-04-29 05:59] LABS: ALBUMIN 2.2 g/dL (3.5-5.0); ALBUMIN/GLOBULIN RATIO 0.5 (0.8-2.0); ANION GAP 17.8 mmol/L (8-16); CALCIUM 8.4 mg/dL (8.4-10.2); CREATININE, SERUM 1.85 mg/dL (0.72-1.25); POTASSIUM 3.8 mmol/L (3.5-5.1)
[2022-04-29] MEDS: INSULIN LISPRO 100 UNIT/1 ML 3ML VIAL SQ SCH ×4 (08:00→21:02)
[2022-04-29] MEDS: INSULIN GLARGINE 100 UNITS/ML VIAL SQ SCH ×2 (08:35→17:35)
[2022-04-29] MEDS: FAMOTIDINE 20 MG TAB PO SCH (08:42)
[2022-04-29] MEDS: ASPIRIN 81 MG ENTERIC COATED PO SCH (08:42)
[2022-04-29] MEDS: CEFEPIME 2 GM in SODIUM CHLORIDE 0.9% 100 ML IV SCH (08:42)
[2022-04-29] MEDS: NIFEDIPINE CR 30 MG TAB PO SCH (08:43)
[2022-04-29] MEDS: DOCUSATE SODIUM 100 MG CAP PO SCH ×2 (08:43→17:33)
[2022-04-29] MEDS: BISOPROLOL FUMARATE 10 MG TAB PO SCH ×2 (08:43→17:34)
[2022-04-29] MEDS: CLONIDINE HCL 0.1 MG TAB PO SCH ×2 (08:44→17:33)
[2022-04-29] MEDS: OXYBUTYNIN CHLORIDE 5 MG TAB PO SCH ×2 (08:44→17:34)
[2022-04-29] MEDS: APIXAB 2.5 MG TABLET PO SCH ×2 (08:44→17:33)
[2022-04-29] MEDS: LEVOFLOXACIN 250MG/D5W 50ML 50 ML IV SCH (13:31)
[2022-04-29] MEDS: ATORVASTATIN 40 MG TAB PO SCH (20:55)
[2022-04-30] VITALS (8 sets, daily range): BP systolic 112–141; BP diastolic 66–79
[2022-04-30 05:35] LABS: BASOPHILS # (AUTO) 0.1 (0.0-0.1); BASOPHILS % 0.5 % (0.0-1.0); EOSINOPHILS # (AUTO) 0.3 (0.0-0.4); EOSINOPHILS % 2.7 % (0.0-6.0); HEMATOCRIT 42.8 % (38.2-49.6); HEMOGLOBIN 14.4 g/dL (14.0-18.0); LYMPHOCYTES # (AUTO) 2.2 (1.0-3.2); LYMPHOCYTES % 19.5 % (18.0-39.1); MEAN CORPUSCULAR HEMOGLOBIN 31.3 pg (28-32); MEAN CORPUSCULAR HGB CONC 33.6 g/dL (31-35); MONOCYTES # (AUTO) 0.9 (0.2-0.8); MONOCYTES % 7.7 % (4.4-11.3); NEUTROPHILS # (AUTO) 7.8 (2.1-6.9); NEUTROPHILS % 68.6 % (38.7-80.0); PLATELET COUNT 397 x10e3/uL (140-360)
[2022-04-30 06:04] LABS: ALBUMIN 2.2 g/dL (3.5-5.0); ALBUMIN/GLOBULIN RATIO 0.4 (0.8-2.0); ANION GAP 19.3 mmol/L (8-16); CALCIUM 8.4 mg/dL (8.4-10.2); CREATININE, SERUM 1.83 mg/dL (0.72-1.25); POTASSIUM 3.3 mmol/L (3.5-5.1)
[2022-04-30] MEDS: LEVOTHYROXINE SODIUM 100 MCG TAB PO SCH (06:15)
[2022-04-30] MEDS: INSULIN GLARGINE 100 UNITS/ML VIAL SQ SCH ×2 (09:00→16:05)
[2022-04-30] MEDS: DOCUSATE SODIUM 100 MG CAP PO SCH ×2 (09:00→16:58)
[2022-04-30] MEDS: INSULIN LISPRO 100 UNIT/1 ML 3ML VIAL SQ SCH ×4 (09:02→21:17)
[2022-04-30] MEDS: CEFEPIME 2 GM in SODIUM CHLORIDE 0.9% 100 ML IV SCH (09:07)
[2022-04-30] MEDS: FAMOTIDINE 20 MG TAB PO SCH (09:07)
[2022-04-30] MEDS: BISOPROLOL FUMARATE 10 MG TAB PO SCH ×2 (09:08→16:58)
[2022-04-30] MEDS: ASPIRIN 81 MG ENTERIC COATED PO SCH (09:08)
[2022-04-30] MEDS: APIXAB 2.5 MG TABLET PO SCH ×2 (09:09→16:58)
[2022-04-30] MEDS: NIFEDIPINE CR 30 MG TAB PO SCH (09:09)
[2022-04-30] MEDS: CLONIDINE HCL 0.1 MG TAB PO SCH ×2 (09:09→16:59)
[2022-04-30] MEDS: OXYBUTYNIN CHLORIDE 5 MG TAB PO SCH ×2 (09:09→16:58)
[2022-04-30] MEDS: FUROSEMIDE INJ 10 MG/ML 4 ML VIAL IV SCH (09:22)
[2022-04-30] MEDS ORDERED: POTASSIUM CHLORIDE 10MEQ EA PO ONE (09:30)
[2022-04-30] MEDS: LEVOFLOXACIN 250MG/D5W 50ML 50 ML IV SCH (12:09)
[2022-04-30] MEDS ORDERED: SODIUM CHLORIDE 0.9% 250ML 250 ML ONE (12:21)
[2022-04-30] MEDS: ATORVASTATIN 40 MG TAB PO SCH (21:12)
[2022-05-01] VITALS: BP 116/62
[2022-05-01] MEDS: LEVOTHYROXINE SODIUM 100 MCG TAB PO SCH (05:34)
[2022-05-01 06:02] LABS: BASOPHILS # (AUTO) 0.1 (0.0-0.1); BASOPHILS % 0.9 % (0.0-1.0); EOSINOPHILS # (AUTO) 0.3 (0.0-0.4); HEMOGLOBIN 15.1 g/dL (14.0-18.0); LYMPHOCYTES # (AUTO) 2.1 (1.0-3.2); LYMPHOCYTES % 22.2 % (18.0-39.1); MEAN CORPUSCULAR HEMOGLOBIN 31.7 pg (28-32); MEAN CORPUSCULAR HGB CONC 32.1 g/dL (31-35); MEAN CORPUSCULAR VOLUME 98.5 fL (81-99); MONOCYTES # (AUTO) 0.9 (0.2-0.8); MONOCYTES % 9.3 % (4.4-11.3); NEUTROPHILS # (AUTO) 6.1 (2.1-6.9); NEUTROPHILS % 63.8 % (38.7-80.0); PLATELET COUNT 302 x10e3/uL (140-360); RED BLOOD COUNT 4.77 x10e6/uL (4.3-5.7); RED CELL DISTRIBUTION WIDTH 13.2 % (11.7-14.4)
[2022-05-01 06:22] LABS: ALBUMIN 2.1 g/dL (3.5-5.0); ALBUMIN/GLOBULIN RATIO 0.4 (0.8-2.0); CALCIUM 8.7 mg/dL (8.4-10.2); CREATININE, SERUM 1.94 mg/dL (0.72-1.25)
[2022-05-01 08:00] VITALS: BP 130/72
[2022-05-01] MEDS: BISOPROLOL FUMARATE 10 MG TAB PO SCH (08:16)
[2022-05-01 08:17] VITALS: BP 130/72
[2022-05-01] MEDS: DOCUSATE SODIUM 100 MG CAP PO SCH (08:17)
[2022-05-01] MEDS: NIFEDIPINE CR 30 MG TAB PO SCH (08:20)
[2022-05-01] MEDS: OXYBUTYNIN CHLORIDE 5 MG TAB PO SCH (08:21)
[2022-05-01] MEDS: INSULIN LISPRO 100 UNIT/1 ML 3ML VIAL SQ SCH ×2 (08:21→11:38)
[2022-05-01] MEDS: FAMOTIDINE 20 MG TAB PO SCH (08:21)
[2022-05-01] MEDS: CEFEPIME 2 GM in SODIUM CHLORIDE 0.9% 100 ML IV SCH (08:21)
[2022-05-01] MEDS: ASPIRIN 81 MG ENTERIC COATED PO SCH (08:21)
[2022-05-01] MEDS: CLONIDINE HCL 0.1 MG TAB PO SCH (08:21)
[2022-05-01] MEDS: INSULIN GLARGINE 100 UNITS/ML VIAL SQ SCH (08:21)
[2022-05-01] MEDS ORDERED: FUROSEMIDE 40 MG TAB PO SCH (09:00)
[2022-05-01 11:51] VITALS: BP 118/71
== END 2022-05-01 15:53 | DRG 871 ==
LOC: ER 22:01 → ERHOLD 04-23 00:10 → MED/SURG2 04-23 03:37
PROVIDERS: ADMIT Internal Medicine; ATTEND Internal Medicine
PROC: XW033E5 Introduction of Remdesivir Anti-infective into Peripheral Vein, Percutaneous Approach, New Technology Group 5 (ICD-10-PCS; principal; 2022-04-23)
PROC: 3E03329 Introduction of Other Anti-infective into Peripheral Vein, Percutaneous Approach (ICD-10-PCS; 2022-04-23)
DX: A41.51 Sepsis due to Escherichia coli [E. coli] (principal); E43 Unspecified severe protein-calorie malnutrition; I26.99 Other pulmonary embolism without acute cor pulmonale; U07.1 COVID-19; I50.33 Acute on chronic diastolic (congestive) heart failure; J12.82 Pneumonia due to coronavirus disease 2019; I13.0 Hypertensive heart and chronic kidney disease with heart failure and stage 1 through stage 4 chronic kidney disease, or unspecified chronic kidney disease; N17.9 Acute kidney failure, unspecified; N39.0 Urinary tract infection, site not specified; R65.20 Severe sepsis without septic shock; I25.10 Atherosclerotic heart disease of native coronary artery without angina pectoris; E11.51 Type 2 diabetes mellitus with diabetic peripheral angiopathy without gangrene; R33.9 Retention of urine, unspecified; N18.30 Chronic kidney disease, stage 3 unspecified; E11.22 Type 2 diabetes mellitus with diabetic chronic kidney disease; Z68.25 Body mass index [BMI] 25.0-25.9, adult; Z66 Do not resuscitate; E11.69 Type 2 diabetes mellitus with other specified complication; E03.9 Hypothyroidism, unspecified; N40.1 Benign prostatic hyperplasia with lower urinary tract symptoms; R33.8 Other retention of urine; R31.29 Other microscopic hematuria; R80.9 Proteinuria, unspecified; E87.6 Hypokalemia; T38.0X5A Adverse effect of glucocorticoids and synthetic analogues, initial encounter; N45.1 Epididymitis; R09.02 Hypoxemia; Z79.899 Other long term (current) drug therapy
CPT/HCPCS: 36415; 51700; 70450; 71045; 71260; 74176; 80053; 81001; 82550; 82553; 82948; 83605; 83880; 84484; 85025; 87040; 87086; 87186; 93005; 93306; 94799; 96372; 99252; 99285; J0248; J0692; J0696; J1650; J1815; J1940; J1956; J2543; J7030; J7050; Q9967

== ENCOUNTER 2022-10-13 06:50 | Inpatient (IN) | payer MEDICARE ==
[2022-10-10 10:48] LABS: BASOPHILS # (AUTO) 0.1 (0.0-0.1); BASOPHILS % 1.1 % (0.0-1.0); EOSINOPHILS # (AUTO) 0.1 (0.0-0.4); EOSINOPHILS % 1.2 % (0.0-6.0); HEMATOCRIT 43.3 % (38.2-49.6); HEMOGLOBIN 14.8 g/dL (14.0-18.0); LYMPHOCYTES # (AUTO) 3.2 (1.0-3.2); LYMPHOCYTES % 30.2 % (18.0-39.1); MEAN CORPUSCULAR HGB CONC 34.2 g/dL (31-35); MEAN CORPUSCULAR VOLUME 90.6 fL (81-99); MONOCYTES # (AUTO) 0.9 (0.2-0.8); NEUTROPHILS # (AUTO) 6.3 (2.1-6.9); NEUTROPHILS % 59.2 % (38.7-80.0); PLATELET COUNT 245 x10e3/uL (140-360); RED BLOOD COUNT 4.78 x10e6/uL (4.3-5.7); RED CELL DISTRIBUTION WIDTH 13.2 % (11.7-14.4)
[2022-10-10 11:11] LABS: ANION GAP 16.6 mmol/L (8-16); CALCIUM 8.6 mg/dL (8.4-10.2); CREATININE, SERUM 1.95 mg/dL (0.72-1.25); POTASSIUM 4.6 mmol/L (3.5-5.1)
[~2022-10-13] VITALS: Ht 180.3 cm; Wt 83.5 kg
[~2022-10-13 06:50] MED LIST changes: +BUMETANIDE1 MG PO; +ELIQUIS2.5 MG PO; +FINASTERIDE5 MG PO; +FLOMAX0.4 MG PO; +LANTUS 3ML100 UNITS/ SQ; +NATEGLINIDE60 MG PO; +POTASSIUM CHLO20 ME1 PO
[2022-10-13] MEDS ORDERED: GENTAMICIN 80MG/NS 100 ML 200 ML IV ONE (07:13)
[2022-10-13] MEDS ORDERED: SODIUM CHLORIDE 0.9% 1000ML 1,000 ML ONE (07:14)
[2022-10-13] MEDS ORDERED: CEFTRIAXONE 1 GM VIAL ONE (07:14)
[2022-10-13] MEDS ORDERED: IOPAMIDOL 610MG/1ML 300 MG/ML VIAL IV ONE (08:11)
[2022-10-13] MEDS ORDERED: METHYLENE BLUE 1% INJ 10 ML VIAL INJ ONE (09:37)
[2022-10-13] MEDS: FENTANYL CITRATE/PF 100MCG/2 ML INJ ONE ×4 (11:45→12:00)
[2022-10-13] MEDS ORDERED: ONDANSETRON HCL INJ 2MG/ML 2ML 2 MG/ML VIAL IV PRN (11:45)
[2022-10-13] MEDS ORDERED: ACETAMINOPHEN/CODEINE 300MG - 30MG TAB ONE (12:20)
[2022-10-13] MEDS: ACETAMINOPHEN/CODEINE 300MG - 30MG TAB PO PRN ×2 (12:25→20:12)
[2022-10-13] MEDS: PHENAZOPYRIDINE HCL 100 MG TAB PO PRN ×2 (12:25→20:12)
[2022-10-13 12:45] LABS: BASOPHILS # (AUTO) 0.1 (0.0-0.1); BASOPHILS % 0.6 % (0.0-1.0); EOSINOPHILS # (AUTO) 0.1 (0.0-0.4); EOSINOPHILS % 0.9 % (0.0-6.0); HEMATOCRIT 41.6 % (38.2-49.6); LYMPHOCYTES # (AUTO) 2.8 (1.0-3.2); LYMPHOCYTES % 24.5 % (18.0-39.1); MEAN CORPUSCULAR HEMOGLOBIN 31.3 pg (28-32); MEAN CORPUSCULAR HGB CONC 33.7 g/dL (31-35); MEAN CORPUSCULAR VOLUME 92.9 fL (81-99); MONOCYTES # (AUTO) 0.8 (0.2-0.8); MONOCYTES % 6.9 % (4.4-11.3); NEUTROPHILS # (AUTO) 7.7 (2.1-6.9); NEUTROPHILS % 66.7 % (38.7-80.0); PLATELET COUNT 199 x10e3/uL (140-360); RED BLOOD COUNT 4.48 x10e6/uL (4.3-5.7); RED CELL DISTRIBUTION WIDTH 13.2 % (11.7-14.4)
[2022-10-13 13:08] LABS: ANION GAP 14.2 mmol/L (8-16); CALCIUM 7.9 mg/dL (8.4-10.2); CREATININE, SERUM 1.56 mg/dL (0.72-1.25); POTASSIUM 4.2 mmol/L (3.5-5.1)
[2022-10-13] MEDS ORDERED: FENTANYL CITRATE/PF 100MCG/2 ML INJ ONE (13:54)
[2022-10-13 14:11] VITALS: BP 181/76; PULSE 68; RESP 18; TEMP 97.8; O2SAT 94
[2022-10-13 14:19] VITALS: BP 181/76; PULSE 68; RESP 18; TEMP 97.8; O2SAT 94
[2022-10-13] MEDS: SODIUM CHLORIDE 0.9% 1000ML 1,000 ML IV SCH (15:18)
[2022-10-13] MEDS ORDERED: PHENYLEPHRINE HCL 1% 10 MG/ML VIAL ONE (15:39)
[2022-10-13] MEDS ORDERED: FUROSEMIDE INJ 10 MG/ML 4 ML VIAL ONE (15:39)
[2022-10-13] MEDS ORDERED: ONDANSETRON HCL INJ 2MG/ML 2ML 2 MG/ML VIAL ONE (15:39)
[2022-10-13] MEDS ORDERED: EPHEDRINE SULFATE INJ 50 MG/ML VIAL ONE (15:39)
[2022-10-13] MEDS ORDERED: LIDOCAINE HCL 2% LOCAL INJ 5 ML SDV VIAL INJ ONE (15:39)
[2022-10-13] MEDS ORDERED: GLYCOPYRROLATE INJ 0.2 MG/ML VIAL ONE (15:39)
[2022-10-13] MEDS ORDERED: POVIDONE IODINE 0.05% 0.05 % ML PO ONE (15:39)
[2022-10-13 15:59] VITALS: PULSE 70; RESP 18; O2SAT 92
[2022-10-13 16:20] VITALS: BP 181/76; PULSE 68; RESP 18; TEMP 97.8; O2SAT 94
[2022-10-13] MEDS: DOCUSATE SODIUM 100 MG CAP PO SCH (16:49)
[2022-10-13] MEDS ORDERED: HYDRALAZINE HCL 20 MG/ML VIAL IV PRN (17:00)
[2022-10-13] MEDS ORDERED: DEXTROSE 50% SYRINGE 50 ML IV PRN (17:15)
[2022-10-13] MEDS ORDERED: ACETAMINOPHEN 1000 MG/100 ML IV PRN (18:00)
[2022-10-13 20:00] VITALS: BP 142/79; PULSE 85; RESP 18; TEMP 98; O2SAT 96
[2022-10-13] MEDS: ATORVASTATIN 40 MG TAB PO SCH (20:08)
[2022-10-13] MEDS: INSULIN LISPRO 100 UNIT/1 ML 3ML VIAL SQ SCH (20:25)
[2022-10-13] MEDS: INSULIN GLARGINE 100 UNITS/ML VIAL SQ SCH (20:26)
[2022-10-13] MEDS ORDERED: MELATONIN 5 MG TABLET PO SCH (21:00)
[2022-10-14 04:44] LABS: BASOPHILS # (AUTO) 0.1 (0.0-0.1); BASOPHILS % 0.6 % (0.0-1.0); EOSINOPHILS # (AUTO) 0.1 (0.0-0.4); EOSINOPHILS % 0.9 % (0.0-6.0); HEMATOCRIT 32.1 % (38.2-49.6); HEMOGLOBIN 10.7 g/dL (14.0-18.0); LYMPHOCYTES # (AUTO) 2.4 (1.0-3.2); LYMPHOCYTES % 22.5 % (18.0-39.1); MEAN CORPUSCULAR HEMOGLOBIN 31.2 pg (28-32); MEAN CORPUSCULAR HGB CONC 33.3 g/dL (31-35); MEAN CORPUSCULAR VOLUME 93.6 fL (81-99); MONOCYTES # (AUTO) 0.9 (0.2-0.8); MONOCYTES % 8.6 % (4.4-11.3); NEUTROPHILS # (AUTO) 7.1 (2.1-6.9); NEUTROPHILS % 67.1 % (38.7-80.0); PLATELET COUNT 181 x10e3/uL (140-360); RED BLOOD COUNT 3.43 x10e6/uL (4.3-5.7); RED CELL DISTRIBUTION WIDTH 13.4 % (11.7-14.4)
[2022-10-14 05:00] LABS: ANION GAP 14.4 mmol/L (8-16); CALCIUM 7.3 mg/dL (8.4-10.2); CREATININE, SERUM 1.99 mg/dL (0.72-1.25); POTASSIUM 4.4 mmol/L (3.5-5.1)
[2022-10-14] MEDS: LEVOTHYROXINE SODIUM 100 MCG TAB PO SCH (05:39)
[2022-10-14] MEDS: SODIUM CHLORIDE 0.9% 1000ML 1,000 ML IV SCH ×2 (05:40→06:14)
[2022-10-14 06:54] VITALS: BP 141/63; PULSE 66; RESP 18; TEMP 98.4; O2SAT 100
[2022-10-14] MEDS: INSULIN LISPRO 100 UNIT/1 ML 3ML VIAL SQ SCH ×4 (07:30→20:57)
[2022-10-14] MEDS: NIFEDIPINE CR 30 MG TAB PO SCH (08:57)
[2022-10-14] MEDS: BUMETANIDE 1 MG TAB PO SCH (08:57)
[2022-10-14] MEDS: POTASSIUM CHLORIDE 20 MEQ TAB CR PO SCH (08:58)
[2022-10-14] MEDS: BISOPROLOL FUMARATE 10 MG TAB PO SCH (08:58)
[2022-10-14] MEDS: SENNOSIDES 8.6 MG TAB PO SCH (08:58)
[2022-10-14] MEDS: DOCUSATE SODIUM 100 MG CAP PO SCH ×2 (08:58→17:01)
[2022-10-14] MEDS: CLONIDINE HCL 0.1 MG TAB PO SCH ×2 (08:59→17:01)
[2022-10-14 09:09] VITALS: BP 145/69; PULSE 65; RESP 18; TEMP 98.4; O2SAT 100
[2022-10-14 09:13] VITALS: BP 145/69; PULSE 65; RESP 16; TEMP 99.4; O2SAT 96
[2022-10-14] MEDS ORDERED: DIPHENHYDRAMINE HCL 25 MG CAP PO PRN (10:30)
[2022-10-14 12:00] VITALS: BP 149/79; PULSE 68; RESP 20; TEMP 98.9; O2SAT 94
[2022-10-14 16:34] VITALS: BP 145/73; PULSE 68; RESP 20; TEMP 98.1; O2SAT 91
[2022-10-14 20:00] VITALS: BP 130/75; PULSE 64; RESP 20; TEMP 98; O2SAT 92
[2022-10-14] MEDS: ATORVASTATIN 40 MG TAB PO SCH (20:38)
[2022-10-14] MEDS: DIPHENHYDRAMINE HCL 25 MG CAP PO PRN (20:42)
[2022-10-14] MEDS: INSULIN GLARGINE 100 UNITS/ML VIAL SQ SCH (20:56)
[2022-10-15 04:38] VITALS: BP 128/72; PULSE 65; RESP 20; TEMP 98.1; O2SAT 94
[2022-10-15 05:05] LABS: BASOPHILS # (AUTO) 0.1 (0.0-0.1); BASOPHILS % 0.7 % (0.0-1.0); EOSINOPHILS # (AUTO) 0.4 (0.0-0.4); EOSINOPHILS % 4.4 % (0.0-6.0); HEMATOCRIT 32.2 % (38.2-49.6); HEMOGLOBIN 10.5 g/dL (14.0-18.0); LYMPHOCYTES # (AUTO) 2.7 (1.0-3.2); LYMPHOCYTES % 28.7 % (18.0-39.1); MEAN CORPUSCULAR HEMOGLOBIN 31.3 pg (28-32); MEAN CORPUSCULAR HGB CONC 32.6 g/dL (31-35); MEAN CORPUSCULAR VOLUME 95.8 fL (81-99); MONOCYTES % 11.1 % (4.4-11.3); NEUTROPHILS # (AUTO) 5.1 (2.1-6.9); NEUTROPHILS % 54.7 % (38.7-80.0); PLATELET COUNT 151 x10e3/uL (140-360); RED BLOOD COUNT 3.36 x10e6/uL (4.3-5.7); RED CELL DISTRIBUTION WIDTH 13.2 % (11.7-14.4)
[2022-10-15] MEDS: LEVOTHYROXINE SODIUM 100 MCG TAB PO SCH (05:12)
[2022-10-15] MEDS: SODIUM CHLORIDE 0.9% 1000ML 1,000 ML IV SCH ×2 (05:15→16:55)
[2022-10-15 05:20] LABS: CALCIUM 7.4 mg/dL (8.4-10.2); CREATININE, SERUM 1.65 mg/dL (0.72-1.25)
[2022-10-15 05:55] LABS: ALBUMIN 2.5 g/dL (3.5-5.0); BILIRUBIN,DIRECT 0.2 mg/dL (0.0-0.5); MAGNESIUM 1.5 MG/DL (1.3-2.1)
[2022-10-15 06:16] LABS: FERRITIN 256.57 ng/mL (21.81-274.66)
[2022-10-15 08:32] VITALS: PULSE 66; RESP 20; TEMP 98; O2SAT 95
[2022-10-15 09:00] VITALS: BP 155/74; PULSE 66; RESP 20; TEMP 98; O2SAT 95
[2022-10-15] MEDS: DOCUSATE SODIUM 100 MG CAP PO SCH ×2 (09:00→16:52)
[2022-10-15] MEDS: SENNOSIDES 8.6 MG TAB PO SCH (09:00)
[2022-10-15] MEDS: INSULIN LISPRO 100 UNIT/1 ML 3ML VIAL SQ SCH ×4 (09:18→20:18)
[2022-10-15] MEDS: NIFEDIPINE CR 30 MG TAB PO SCH (09:19)
[2022-10-15] MEDS: BUMETANIDE 1 MG TAB PO SCH (09:19)
[2022-10-15] MEDS: CLONIDINE HCL 0.1 MG TAB PO SCH ×2 (09:19→16:52)
[2022-10-15] MEDS: POTASSIUM CHLORIDE 20 MEQ TAB CR PO SCH (09:20)
[2022-10-15] MEDS: BISOPROLOL FUMARATE 10 MG TAB PO SCH (09:21)
[2022-10-15] MEDS ORDERED: ONDANSETRON HCL 4 MG ORAL DISINTEGRATING TAB PO PRN ×2 (10:15)
[2022-10-15 12:09] VITALS: BP 146/72; PULSE 63; RESP 17; TEMP 98.2; O2SAT 92
[2022-10-15 16:25] VITALS: BP 158/73; PULSE 66; RESP 18; TEMP 97.3; O2SAT 92
[2022-10-15] MEDS: OYST-CAL-D 500MG TABLET PO SCH ×2 (16:51→20:06)
[2022-10-15] MEDS: ACETAMINOPHEN/CODEINE 300MG - 30MG TAB PO PRN (17:21)
[2022-10-15 20:00] VITALS: BP 139/64; PULSE 64; RESP 18; TEMP 98.6; O2SAT 93
[2022-10-15] MEDS: ATORVASTATIN 40 MG TAB PO SCH (20:06)
[2022-10-15] MEDS: DIPHENHYDRAMINE HCL 25 MG CAP PO PRN (20:11)
[2022-10-15] MEDS: INSULIN GLARGINE 100 UNITS/ML VIAL SQ SCH (20:17)
[2022-10-16] VITALS: BP 135/65; PULSE 65; RESP 18; TEMP 98.1; O2SAT 92
[2022-10-16 04:00] VITALS: BP 152/76; PULSE 62; RESP 18; TEMP 97.9; O2SAT 91
[2022-10-16 04:53] LABS: BASOPHILS # (AUTO) 0.1 (0.0-0.1); BASOPHILS % 0.6 % (0.0-1.0); EOSINOPHILS # (AUTO) 0.5 (0.0-0.4); EOSINOPHILS % 3.5 % (0.0-6.0); HEMOGLOBIN 12.1 g/dL (14.0-18.0); LYMPHOCYTES % 34.1 % (18.0-39.1); MEAN CORPUSCULAR HEMOGLOBIN 31.4 pg (28-32); MEAN CORPUSCULAR HGB CONC 32.7 g/dL (31-35); MEAN CORPUSCULAR VOLUME 96.1 fL (81-99); MONOCYTES # (AUTO) 1.3 (0.2-0.8); MONOCYTES % 9.1 % (4.4-11.3); NEUTROPHILS # (AUTO) 7.6 (2.1-6.9); NEUTROPHILS % 52.2 % (38.7-80.0); PLATELET COUNT 190 x10e3/uL (140-360); RED BLOOD COUNT 3.85 x10e6/uL (4.3-5.7); RED CELL DISTRIBUTION WIDTH 13.2 % (11.7-14.4)
[2022-10-16 05:15] LABS: ALBUMIN 2.8 g/dL (3.5-5.0); ALBUMIN/GLOBULIN RATIO 0.8 (0.8-2.0); CALCIUM 8.3 mg/dL (8.4-10.2); CREATININE, SERUM 1.55 mg/dL (0.72-1.25)
[2022-10-16] MEDS: SODIUM CHLORIDE 0.9% 1000ML 1,000 ML IV SCH ×2 (05:28→17:05)
[2022-10-16] MEDS: LEVOTHYROXINE SODIUM 100 MCG TAB PO SCH (05:28)
[2022-10-16 07:12] VITALS: BP 152/88; PULSE 65; RESP 18; TEMP 97.3; O2SAT 92
[2022-10-16] MEDS: INSULIN LISPRO 100 UNIT/1 ML 3ML VIAL SQ SCH ×4 (07:30→21:00)
[2022-10-16] MEDS: DOCUSATE SODIUM 100 MG CAP PO SCH ×2 (09:00→16:16)
[2022-10-16] MEDS: SENNOSIDES 8.6 MG TAB PO SCH (09:00)
[2022-10-16] MEDS ORDERED: FUROSEMIDE INJ 10 MG/ML 4 ML VIAL IV ONE (09:30)
[2022-10-16] MEDS: BUMETANIDE 1 MG TAB PO SCH (09:51)
[2022-10-16] MEDS: CLONIDINE HCL 0.1 MG TAB PO SCH ×2 (09:51→16:16)
[2022-10-16] MEDS: POTASSIUM CHLORIDE 20 MEQ TAB CR PO SCH (09:52)
[2022-10-16] MEDS: NIFEDIPINE CR 30 MG TAB PO SCH (09:52)
[2022-10-16] MEDS: OYST-CAL-D 500MG TABLET PO SCH ×3 (09:52→20:26)
[2022-10-16] MEDS: BISOPROLOL FUMARATE 10 MG TAB PO SCH (09:53)
[2022-10-16 10:18] VITALS: BP 160/72; PULSE 70; RESP 18; TEMP 97.3; O2SAT 92
[2022-10-16 16:00] VITALS: BP 140/61; PULSE 68; RESP 20; TEMP 97.3; O2SAT 92
[2022-10-16 20:00] VITALS: BP 130/59; PULSE 67; RESP 18; TEMP 98.8; O2SAT 96
[2022-10-16] MEDS: ATORVASTATIN 40 MG TAB PO SCH (20:27)
[2022-10-16] MEDS: ACETAMINOPHEN/CODEINE 300MG - 30MG TAB PO PRN (20:27)
[2022-10-16] MEDS: ZOLPIDEM TARTRATE 5 MG TAB PO PRN (20:27)
[2022-10-16] MEDS: INSULIN GLARGINE 100 UNITS/ML VIAL SQ SCH (21:00)
[2022-10-17 04:57] LABS: BASOPHILS # (AUTO) 0.1 (0.0-0.1); BASOPHILS % 0.7 % (0.0-1.0); EOSINOPHILS # (AUTO) 0.4 (0.0-0.4); EOSINOPHILS % 3.5 % (0.0-6.0); HEMATOCRIT 32.3 % (38.2-49.6); LYMPHOCYTES # (AUTO) 3.1 (1.0-3.2); LYMPHOCYTES % 29.3 % (18.0-39.1); MEAN CORPUSCULAR HEMOGLOBIN 31.1 pg (28-32); MEAN CORPUSCULAR HGB CONC 34.1 g/dL (31-35); MEAN CORPUSCULAR VOLUME 91.2 fL (81-99); MONOCYTES % 9.6 % (4.4-11.3); NEUTROPHILS # (AUTO) 5.9 (2.1-6.9); NEUTROPHILS % 56.6 % (38.7-80.0); PLATELET COUNT 198 x10e3/uL (140-360); RED BLOOD COUNT 3.54 x10e6/uL (4.3-5.7)
[2022-10-17 05:20] LABS: ALBUMIN 2.6 g/dL (3.5-5.0); ALBUMIN/GLOBULIN RATIO 0.7 (0.8-2.0); ANION GAP 13.6 mmol/L (8-16); CALCIUM 8.6 mg/dL (8.4-10.2); CREATININE, SERUM 1.44 mg/dL (0.72-1.25); POTASSIUM 3.6 mmol/L (3.5-5.1)
[2022-10-17] MEDS: LEVOTHYROXINE SODIUM 100 MCG TAB PO SCH (06:28)
[2022-10-17 08:21] VITALS: BP 168/79; PULSE 71; RESP 18; TEMP 98.5; O2SAT 94
[2022-10-17 08:28] VITALS: BP 168/79; PULSE 71; RESP 18; TEMP 98.5; O2SAT 94
[2022-10-17] MEDS: SENNOSIDES 8.6 MG TAB PO SCH (09:00)
[2022-10-17] MEDS ORDERED: POTASSIUM CHLORIDE 10MEQ EA PO ONE (09:45)
[2022-10-17] MEDS ORDERED: FUROSEMIDE INJ 10 MG/ML 4 ML VIAL IV ONE (09:45)
[2022-10-17] MEDS: DOCUSATE SODIUM 100 MG CAP PO SCH ×2 (10:05→16:45)
[2022-10-17] MEDS: BISOPROLOL FUMARATE 10 MG TAB PO SCH (10:06)
[2022-10-17] MEDS: NIFEDIPINE CR 30 MG TAB PO SCH (10:07)
[2022-10-17] MEDS: POTASSIUM CHLORIDE 20 MEQ TAB CR PO SCH (10:07)
[2022-10-17] MEDS: OYST-CAL-D 500MG TABLET PO SCH ×3 (10:07→21:00)
[2022-10-17] MEDS: CLONIDINE HCL 0.1 MG TAB PO SCH ×2 (10:08→16:43)
[2022-10-17 10:10] LABS: INR 1.04; PROTHROMBIN TIME 14.2 seconds (11.9-14.5)
[2022-10-17] MEDS: INSULIN LISPRO 100 UNIT/1 ML 3ML VIAL SQ SCH ×4 (10:19→21:00)
[2022-10-17] MEDS: BUMETANIDE 1 MG TAB PO SCH (10:53)
[2022-10-17 11:50] VITALS: BP 157/81; PULSE 62; RESP 20; TEMP 97.9; O2SAT 95
[2022-10-17 18:06] VITALS: BP 145/68; PULSE 64; RESP 16; TEMP 97.7; O2SAT 95
[2022-10-17 20:00] VITALS: BP 133/71; PULSE 67; RESP 18; TEMP 98; O2SAT 96
[2022-10-17] MEDS: INSULIN GLARGINE 100 UNITS/ML VIAL SQ SCH (21:00)
[2022-10-17] MEDS: ATORVASTATIN 40 MG TAB PO SCH (21:00)
[2022-10-17] MEDS: SODIUM CHLORIDE 0.9% 1000ML 1,000 ML IV SCH (22:00)
[2022-10-18] MEDS: LEVOTHYROXINE SODIUM 100 MCG TAB PO SCH (06:08)
[2022-10-18] MEDS: SODIUM CHLORIDE 0.9% 1000ML 1,000 ML IV SCH ×2 (06:10→20:59)
[2022-10-18 06:44] VITALS: BP 154/84; PULSE 67; RESP 18; TEMP 98; O2SAT 96
[2022-10-18 07:22] LABS: ANION GAP 15.9 mmol/L (8-16); CALCIUM 8.7 mg/dL (8.4-10.2); CREATININE, SERUM 1.75 mg/dL (0.72-1.25); POTASSIUM 3.9 mmol/L (3.5-5.1)
[2022-10-18] MEDS: INSULIN LISPRO 100 UNIT/1 ML 3ML VIAL SQ SCH ×4 (07:30→21:08)
[2022-10-18 07:53] LABS: BASOPHILS # (AUTO) 0.1 (0.0-0.1); BASOPHILS % 0.7 % (0.0-1.0); EOSINOPHILS # (AUTO) 0.4 (0.0-0.4); HEMATOCRIT 32.4 % (38.2-49.6); HEMOGLOBIN 10.9 g/dL (14.0-18.0); LYMPHOCYTES # (AUTO) 2.4 (1.0-3.2); LYMPHOCYTES % 24.9 % (18.0-39.1); MEAN CORPUSCULAR HEMOGLOBIN 31.2 pg (28-32); MEAN CORPUSCULAR HGB CONC 33.6 g/dL (31-35); MEAN CORPUSCULAR VOLUME 92.8 fL (81-99); MONOCYTES # (AUTO) 0.9 (0.2-0.8); MONOCYTES % 9.1 % (4.4-11.3); NEUTROPHILS # (AUTO) 5.8 (2.1-6.9); NEUTROPHILS % 60.9 % (38.7-80.0); PLATELET COUNT 220 x10e3/uL (140-360); RED BLOOD COUNT 3.49 x10e6/uL (4.3-5.7); RED CELL DISTRIBUTION WIDTH 13.5 % (11.7-14.4)
[2022-10-18] MEDS: NIFEDIPINE CR 30 MG TAB PO SCH (08:16)
[2022-10-18] MEDS: POTASSIUM CHLORIDE 20 MEQ TAB CR PO SCH (08:16)
[2022-10-18] MEDS: CLONIDINE HCL 0.1 MG TAB PO SCH ×2 (08:17→17:47)
[2022-10-18] MEDS: BISOPROLOL FUMARATE 10 MG TAB PO SCH (08:17)
[2022-10-18] MEDS: BUMETANIDE 1 MG TAB PO SCH (08:17)
[2022-10-18] MEDS: SENNOSIDES 8.6 MG TAB PO SCH (08:17)
[2022-10-18] MEDS: OYST-CAL-D 500MG TABLET PO SCH ×3 (08:17→20:59)
[2022-10-18] MEDS: DOCUSATE SODIUM 100 MG CAP PO SCH ×2 (08:18→17:00)
[2022-10-18 08:38] VITALS: BP 147/74; PULSE 68; RESP 16; TEMP 98.3; O2SAT 93
[2022-10-18 13:14] VITALS: BP 157/89; PULSE 66; RESP 19; TEMP 98.3; O2SAT 92
[2022-10-18 16:24] VITALS: BP 154/81; PULSE 65; RESP 17; TEMP 97.6; O2SAT 97
[2022-10-18 20:00] VITALS: BP 139/68; PULSE 78; RESP 19; TEMP 97.4
[2022-10-18 21:00] VITALS: BP 139/68; PULSE 78; RESP 19; TEMP 97.4; O2SAT 97
[2022-10-18] MEDS: ZOLPIDEM TARTRATE 5 MG TAB PO PRN (21:00)
[2022-10-18] MEDS: ATORVASTATIN 40 MG TAB PO SCH (21:00)
[2022-10-18] MEDS: INSULIN GLARGINE 100 UNITS/ML VIAL SQ SCH (21:07)
[2022-10-19] VITALS: BP 148/81; PULSE 70; RESP 20; TEMP 98.1; O2SAT 94
[2022-10-19] MEDS: SODIUM CHLORIDE 0.9% 1000ML 1,000 ML IV SCH (01:05)
[2022-10-19] MEDS: LEVOTHYROXINE SODIUM 100 MCG TAB PO SCH (06:01)
[2022-10-19 06:10] LABS: ALBUMIN 2.7 g/dL (3.5-5.0); ALBUMIN/GLOBULIN RATIO 0.8 (0.8-2.0); ANION GAP 14.8 mmol/L (8-16); CALCIUM 8.7 mg/dL (8.4-10.2); CREATININE, SERUM 1.69 mg/dL (0.72-1.25); POTASSIUM 3.8 mmol/L (3.5-5.1)
[2022-10-19 07:56] VITALS: BP 171/78; PULSE 73; RESP 20; TEMP 98.1; O2SAT 95
[2022-10-19] MEDS: INSULIN LISPRO 100 UNIT/1 ML 3ML VIAL SQ SCH (08:14)
[2022-10-19] MEDS: DOCUSATE SODIUM 100 MG CAP PO SCH (08:15)
[2022-10-19] MEDS: SENNOSIDES 8.6 MG TAB PO SCH (08:15)
[2022-10-19] MEDS: BUMETANIDE 1 MG TAB PO SCH (08:19)
[2022-10-19] MEDS: POTASSIUM CHLORIDE 20 MEQ TAB CR PO SCH (08:19)
[2022-10-19] MEDS: CLONIDINE HCL 0.1 MG TAB PO SCH (08:20)
[2022-10-19] MEDS: BISOPROLOL FUMARATE 10 MG TAB PO SCH (08:20)
[2022-10-19] MEDS: OYST-CAL-D 500MG TABLET PO SCH (08:20)
[2022-10-19] MEDS: NIFEDIPINE CR 30 MG TAB PO SCH (08:21)
[2022-10-19] MEDS ORDERED: CIPROFLOXACIN 250 MG TAB PO SCH (09:00)
[2022-10-19] MEDS ORDERED: METRONIDAZOLE 250 MG TAB PO SCH (14:00)
== END 2022-10-19 09:32 | disposition home or self-care (01) | DRG 713 ==
LOC: OR 06:50 → PACU V 11:45 → MED/SURG 13:40
PROVIDERS: ADMIT Internal Medicine; ATTEND Internal Medicine
PROC: BT1D1ZZ Fluoroscopy of Right Kidney, Ureter and Bladder using Low Osmolar Contrast (ICD-10-PCS; 2022-10-13)
PROC: 0VT08ZZ Resection of Prostate, Via Natural or Artificial Opening Endoscopic (ICD-10-PCS; principal; 2022-10-13 08:51)
DX: N40.1 Benign prostatic hyperplasia with lower urinary tract symptoms (principal); I13.0 Hypertensive heart and chronic kidney disease with heart failure and stage 1 through stage 4 chronic kidney disease, or unspecified chronic kidney disease; I50.32 Chronic diastolic (congestive) heart failure; N17.9 Acute kidney failure, unspecified; N39.0 Urinary tract infection, site not specified; I25.10 Atherosclerotic heart disease of native coronary artery without angina pectoris; E11.51 Type 2 diabetes mellitus with diabetic peripheral angiopathy without gangrene; E78.5 Hyperlipidemia, unspecified; E03.9 Hypothyroidism, unspecified; N18.32 Chronic kidney disease, stage 3b; R33.9 Retention of urine, unspecified; R35.0 Frequency of micturition; D50.0 Iron deficiency anemia secondary to blood loss (chronic); E11.42 Type 2 diabetes mellitus with diabetic polyneuropathy; N32.3 Diverticulum of bladder; B96.5 Pseudomonas (aeruginosa) (mallei) (pseudomallei) as the cause of diseases classified elsewhere; Z86.16 Personal history of COVID-19; Z86.711 Personal history of pulmonary embolism; Z79.4 Long term (current) use of insulin; Z79.01 Long term (current) use of anticoagulants; Z87.891 Personal history of nicotine dependence; Z86.718 Personal history of other venous thrombosis and embolism
CPT/HCPCS: 36415; 71046; 74420; 80048; 80053; 80076; 82607; 82728; 82948; 83036; 83540; 83735; 84443; 84466; 85025; 85610; 87086; 87186; 88304; 88305; 94799; C1758; J0696; J1580; J1815; J1940; J2001; J2370; J2405; J2543; J7030